=== PATIENT | male | born 1940 | race Caucasian/White ===

== ENCOUNTER 2022-04-12 12:21 | Emergency (ER) | payer MEDICARE ==
[2022-04-12] MEDS ORDERED: Morphine 4 MG/ML Syringe IV ONE ×2 (12:46→13:19)
[2022-04-12] MEDS ORDERED: Ondansetron 4 MG/2 ML SDV IVPUSH ONE (12:46)
[2022-04-12] MEDS: Sodium Chloride 0.9% 10 ML Syringe FLUSH PRN ×3 (12:55→14:26)
[2022-04-12 13:45] LABS: CORONAVIRUS COVID-19 NAA NEGATIVE (NEGATIVE); RESPIRATORY SYNCYTIAL VIR NAA NEGATIVE (NEGATIVE)
[2022-04-12] MEDS ORDERED: HYDROmorphone 1 MG/ML Syringe IVPUSH ONE (14:12)
[2022-04-12] MEDS ORDERED: HYDROmorphone 0.5 MG/0.5 ML Syringe IVPUSH ONE ×2 (15:15→16:02)
== END 2022-04-12 16:18 ==
LOC: LL.ED 12:21
DX: S72.142A Displaced intertrochanteric fracture of left femur, initial encounter for closed fracture (principal); I10 Essential (primary) hypertension; I25.2 Old myocardial infarction; Z79.899 Other long term (current) drug therapy; Z79.82 Long term (current) use of aspirin; Z20.822 Contact with and (suspected) exposure to COVID-19; W01.0XXA Fall on same level from slipping, tripping and stumbling without subsequent striking against object, initial encounter
CPT/HCPCS: 0241U; 36415; 80053; 85025; 93005; 93010; 94761; 96374; 96375; 96376; 99284; 99284-25; J1170; J2270; J2405; J3360; J3490

== ENCOUNTER 2022-04-19 15:20 | Inpatient (IN) | payer MEDICARE ==
[2022-04-19] MEDS: Acetaminophen/HYDROcodone 325-10 MG Tab PO ONE ×3 (14:00→16:30)
[2022-04-19] MEDS ORDERED: Sennosides 8.6 MG Tab PO PRN (16:30)
[2022-04-19] MEDS: Omeprazole 20 MG Cap.CR PO SCH (18:28)
[2022-04-19] MEDS: Calcium Carbonate/Vitamin D3 1500 MG-400 Units Tab PO SCH (18:32)
[2022-04-19] MEDS: Sulfamethoxazole/Trimethoprim 800-160 MG Tab PO SCH (20:22)
[2022-04-19] MEDS: Metoprolol Tartrate 25 MG Tab PO SCH (20:23)
[2022-04-19] MEDS: Rosuvastatin 10 MG Tab PO SCH (20:24)
[2022-04-19] MEDS: Acetaminophen/HYDROcodone 325-5 MG Tab PO PRN (21:53)
[2022-04-20] MEDS: Acetaminophen/HYDROcodone 325-5 MG Tab PO PRN ×5 (02:44→22:10)
[2022-04-20] MEDS: Metoprolol Tartrate 25 MG Tab PO SCH ×2 (07:45→19:47)
[2022-04-20] MEDS: Sulfamethoxazole/Trimethoprim 800-160 MG Tab PO SCH ×2 (07:45→19:45)
[2022-04-20] MEDS: Folic Acid 1 MG Tab PO SCH (07:46)
[2022-04-20] MEDS: Omeprazole 20 MG Cap.CR PO SCH ×2 (07:46→17:17)
[2022-04-20] MEDS: predniSONE 5 MG Tab PO SCH (07:46)
[2022-04-20] MEDS: Sertraline 25 MG Tab PO SCH (07:47)
[2022-04-20] MEDS: Finasteride 5 MG Tab PO SCH (07:47)
[2022-04-20] MEDS: Lisinopril 5 MG Tab PO SCH (07:47)
[2022-04-20] MEDS: Multivitamin Tab PO SCH (07:48)
[2022-04-20] MEDS: Cetirizine 10 MG Tab PO SCH (07:49)
[2022-04-20] MEDS: Calcium Carbonate/Vitamin D3 1500 MG-400 Units Tab PO SCH ×2 (07:49→17:17)
[2022-04-20] MEDS: Cholecalciferol (Vitamin D3) 25 MCG Tab PO SCH (07:49)
[2022-04-20] MEDS: Aspirin 81 MG Tab.EC PO SCH (07:51)
[2022-04-20] MEDS: Rosuvastatin 10 MG Tab PO SCH (19:46)
[2022-04-21] MEDS: Acetaminophen/HYDROcodone 325-5 MG Tab PO PRN ×5 (02:42→22:33)
[2022-04-21] MEDS: Folic Acid 1 MG Tab PO SCH (07:30)
[2022-04-21] MEDS: predniSONE 5 MG Tab PO SCH (07:30)
[2022-04-21] MEDS: Finasteride 5 MG Tab PO SCH (07:30)
[2022-04-21] MEDS: Omeprazole 20 MG Cap.CR PO SCH ×2 (07:31→17:00)
[2022-04-21] MEDS: Lisinopril 5 MG Tab PO SCH (07:31)
[2022-04-21] MEDS: Sertraline 25 MG Tab PO SCH (07:31)
[2022-04-21] MEDS: Sulfamethoxazole/Trimethoprim 800-160 MG Tab PO SCH ×2 (07:31→19:48)
[2022-04-21] MEDS: Aspirin 81 MG Tab.EC PO SCH (07:32)
[2022-04-21] MEDS: Metoprolol Tartrate 25 MG Tab PO SCH ×2 (07:32→19:46)
[2022-04-21] MEDS: Cholecalciferol (Vitamin D3) 25 MCG Tab PO SCH (07:33)
[2022-04-21] MEDS: Calcium Carbonate/Vitamin D3 1500 MG-400 Units Tab PO SCH ×2 (07:33→17:00)
[2022-04-21] MEDS: Cetirizine 10 MG Tab PO SCH (07:33)
[2022-04-21] MEDS: Multivitamin Tab PO SCH (07:33)
[2022-04-21] MEDS: Rosuvastatin 10 MG Tab PO SCH (19:46)
[2022-04-22] MEDS: Acetaminophen/HYDROcodone 325-5 MG Tab PO PRN ×5 (03:36→20:16)
[2022-04-22] MEDS: Folic Acid 1 MG Tab PO SCH (08:16)
[2022-04-22] MEDS: Metoprolol Tartrate 25 MG Tab PO SCH ×2 (08:16→20:15)
[2022-04-22] MEDS: Aspirin 81 MG Tab.EC PO SCH (08:16)
[2022-04-22] MEDS: Omeprazole 20 MG Cap.CR PO SCH ×2 (08:18→17:28)
[2022-04-22] MEDS: Lisinopril 5 MG Tab PO SCH (08:18)
[2022-04-22] MEDS: predniSONE 5 MG Tab PO SCH (08:18)
[2022-04-22] MEDS: Finasteride 5 MG Tab PO SCH (08:19)
[2022-04-22] MEDS: Cholecalciferol (Vitamin D3) 25 MCG Tab PO SCH (08:19)
[2022-04-22] MEDS: Multivitamin Tab PO SCH (08:19)
[2022-04-22] MEDS: Sulfamethoxazole/Trimethoprim 800-160 MG Tab PO SCH ×2 (08:19→17:28)
[2022-04-22] MEDS: Sertraline 25 MG Tab PO SCH (08:20)
[2022-04-22] MEDS: Cetirizine 10 MG Tab PO SCH (08:20)
[2022-04-22] MEDS: Calcium Carbonate/Vitamin D3 1500 MG-400 Units Tab PO SCH ×2 (08:49→17:27)
[2022-04-22] MEDS ORDERED: Polyethylene Glycol 3350 Powder 510 GM Bot PO PRN (12:59)
[2022-04-22 13:21] LABS: ANION GAP 7.5 meq/L (7-15)
[2022-04-22] MEDS: Rosuvastatin 10 MG Tab PO SCH (20:15)
[2022-04-23] MEDS: Acetaminophen/HYDROcodone 325-5 MG Tab PO PRN ×3 (01:04→10:11)
[2022-04-23] MEDS: Calcium Carbonate/Vitamin D3 1500 MG-400 Units Tab PO SCH ×2 (08:13→17:28)
[2022-04-23] MEDS: Folic Acid 1 MG Tab PO SCH (08:14)
[2022-04-23] MEDS: Aspirin 81 MG Tab.EC PO SCH (08:14)
[2022-04-23] MEDS: Metoprolol Tartrate 25 MG Tab PO SCH ×2 (08:15→19:50)
[2022-04-23] MEDS: Omeprazole 20 MG Cap.CR PO SCH ×2 (08:16→17:29)
[2022-04-23] MEDS: Lisinopril 5 MG Tab PO SCH (08:17)
[2022-04-23] MEDS: predniSONE 5 MG Tab PO SCH (08:17)
[2022-04-23] MEDS: Sennosides 8.6 MG Tab PO SCH (08:18)
[2022-04-23] MEDS: Finasteride 5 MG Tab PO SCH (08:18)
[2022-04-23] MEDS: Multivitamin Tab PO SCH (08:19)
[2022-04-23] MEDS: Cholecalciferol (Vitamin D3) 25 MCG Tab PO SCH (08:19)
[2022-04-23] MEDS: Sulfamethoxazole/Trimethoprim 800-160 MG Tab PO SCH ×2 (08:19→17:30)
[2022-04-23] MEDS: Sertraline 25 MG Tab PO SCH (08:20)
[2022-04-23] MEDS: Cetirizine 10 MG Tab PO SCH (08:23)
[2022-04-23 08:58] LABS: ANION GAP 7.4 meq/L (7-15)
[2022-04-23] MEDS: Acetaminophen/HYDROcodone 325-10 MG Tab PO PRN ×2 (14:34→21:38)
[2022-04-23] MEDS: Rosuvastatin 10 MG Tab PO SCH (19:49)
[2022-04-24] MEDS: Folic Acid 1 MG Tab PO SCH (09:05)
[2022-04-24] MEDS: Calcium Carbonate/Vitamin D3 1500 MG-400 Units Tab PO SCH ×2 (09:05→17:24)
[2022-04-24] MEDS: Aspirin 81 MG Tab.EC PO SCH (09:05)
[2022-04-24] MEDS: Metoprolol Tartrate 25 MG Tab PO SCH ×2 (09:05→19:43)
[2022-04-24] MEDS: Cetirizine 10 MG Tab PO SCH (09:06)
[2022-04-24] MEDS: Sennosides 8.6 MG Tab PO SCH (09:06)
[2022-04-24] MEDS: predniSONE 5 MG Tab PO SCH (09:06)
[2022-04-24] MEDS: Cholecalciferol (Vitamin D3) 25 MCG Tab PO SCH (09:06)
[2022-04-24] MEDS: Sulfamethoxazole/Trimethoprim 800-160 MG Tab PO SCH ×2 (09:06→17:25)
[2022-04-24] MEDS: Omeprazole 20 MG Cap.CR PO SCH ×2 (09:06→17:25)
[2022-04-24] MEDS: Finasteride 5 MG Tab PO SCH (09:06)
[2022-04-24] MEDS: Sertraline 25 MG Tab PO SCH (09:06)
[2022-04-24] MEDS: Multivitamin Tab PO SCH (09:06)
[2022-04-24] MEDS: Lisinopril 5 MG Tab PO SCH (09:06)
[2022-04-24] MEDS: Acetaminophen/HYDROcodone 325-10 MG Tab PO PRN ×2 (14:25→20:30)
[2022-04-24] MEDS ORDERED: Enoxaparin 30 MG/0.3 ML Syringe SUBCUT SCH (17:00)
[2022-04-24] MEDS: Rosuvastatin 10 MG Tab PO SCH (19:42)
[2022-04-24] MEDS: Enoxaparin 40 MG/0.4 ML Syringe SUBCUT SCH (19:45)
[2022-04-25] MEDS: Acetaminophen/HYDROcodone 325-10 MG Tab PO PRN ×3 (05:14→20:26)
[2022-04-25] MEDS: Metoprolol Tartrate 25 MG Tab PO SCH ×2 (08:21→20:15)
[2022-04-25] MEDS: Sulfamethoxazole/Trimethoprim 800-160 MG Tab PO SCH ×2 (08:22→17:38)
[2022-04-25] MEDS: predniSONE 5 MG Tab PO SCH (08:22)
[2022-04-25] MEDS: Finasteride 5 MG Tab PO SCH (08:22)
[2022-04-25] MEDS: Lisinopril 5 MG Tab PO SCH (08:23)
[2022-04-25] MEDS: Omeprazole 20 MG Cap.CR PO SCH ×2 (08:23→17:37)
[2022-04-25] MEDS: Sertraline 25 MG Tab PO SCH (08:24)
[2022-04-25] MEDS: Cholecalciferol (Vitamin D3) 25 MCG Tab PO SCH (08:25)
[2022-04-25] MEDS: Aspirin 81 MG Tab.EC PO SCH (08:26)
[2022-04-25] MEDS: Sennosides 8.6 MG Tab PO SCH (08:26)
[2022-04-25] MEDS: Multivitamin Tab PO SCH (08:27)
[2022-04-25] MEDS: Cetirizine 10 MG Tab PO SCH (08:27)
[2022-04-25] MEDS: Calcium Carbonate/Vitamin D3 1500 MG-400 Units Tab PO SCH ×2 (08:29→17:37)
[2022-04-25] MEDS: Folic Acid 1 MG Tab PO SCH (08:30)
[2022-04-25] MEDS: Acetaminophen 325 MG Tab PO PRN (17:39)
[2022-04-25] MEDS: Enoxaparin 40 MG/0.4 ML Syringe SUBCUT SCH (20:17)
[2022-04-25] MEDS: Rosuvastatin 10 MG Tab PO SCH (20:24)
[2022-04-26 07:54] LABS: ANION GAP 5.5 meq/L (7-15)
[2022-04-26] MEDS: Lisinopril 5 MG Tab PO SCH (08:14)
[2022-04-26] MEDS: Omeprazole 20 MG Cap.CR PO SCH ×2 (08:14→17:06)
[2022-04-26] MEDS: Sertraline 25 MG Tab PO SCH (08:14)
[2022-04-26] MEDS: Calcium Carbonate/Vitamin D3 1500 MG-400 Units Tab PO SCH ×2 (08:14→17:06)
[2022-04-26] MEDS: predniSONE 5 MG Tab PO SCH (08:15)
[2022-04-26] MEDS: Sulfamethoxazole/Trimethoprim 800-160 MG Tab PO SCH (08:15)
[2022-04-26] MEDS: Finasteride 5 MG Tab PO SCH (08:15)
[2022-04-26] MEDS: Folic Acid 1 MG Tab PO SCH (08:15)
[2022-04-26] MEDS: Metoprolol Tartrate 25 MG Tab PO SCH ×2 (08:15→20:12)
[2022-04-26] MEDS: Sennosides 8.6 MG Tab PO SCH (08:17)
[2022-04-26] MEDS: Aspirin 81 MG Tab.EC PO SCH (08:17)
[2022-04-26] MEDS: Multivitamin Tab PO SCH (08:17)
[2022-04-26] MEDS: Cetirizine 10 MG Tab PO SCH (08:19)
[2022-04-26] MEDS: Cholecalciferol (Vitamin D3) 25 MCG Tab PO SCH (08:19)
[2022-04-26] MEDS: Acetaminophen/HYDROcodone 325-10 MG Tab PO PRN ×2 (08:23→22:09)
[2022-04-26] MEDS: Acetaminophen 325 MG Tab PO PRN (11:18)
[2022-04-26] MEDS ORDERED: Acetaminophen/HYDROcodone 325-10 MG Tab PO ONE (13:41)
[2022-04-26] MEDS: Rosuvastatin 10 MG Tab PO SCH (20:11)
[2022-04-26] MEDS: Enoxaparin 40 MG/0.4 ML Syringe SUBCUT SCH (20:14)
[2022-04-27] MEDS: Omeprazole 20 MG Cap.CR PO SCH ×2 (08:08→17:34)
[2022-04-27] MEDS: Sertraline 25 MG Tab PO SCH (08:08)
[2022-04-27] MEDS: Lisinopril 5 MG Tab PO SCH (08:09)
[2022-04-27] MEDS: predniSONE 5 MG Tab PO SCH (08:09)
[2022-04-27] MEDS: Folic Acid 1 MG Tab PO SCH (08:10)
[2022-04-27] MEDS: Finasteride 5 MG Tab PO SCH (08:11)
[2022-04-27] MEDS: Aspirin 81 MG Tab.EC PO SCH (08:11)
[2022-04-27] MEDS: Sennosides 8.6 MG Tab PO SCH (08:11)
[2022-04-27] MEDS: Calcium Carbonate/Vitamin D3 1500 MG-400 Units Tab PO SCH ×2 (08:12→17:34)
[2022-04-27] MEDS: Metoprolol Tartrate 25 MG Tab PO SCH ×2 (08:12→20:28)
[2022-04-27] MEDS: Multivitamin Tab PO SCH (08:12)
[2022-04-27] MEDS: Cholecalciferol (Vitamin D3) 25 MCG Tab PO SCH (08:18)
[2022-04-27] MEDS: Cetirizine 10 MG Tab PO SCH (08:19)
[2022-04-27] MEDS: Acetaminophen/HYDROcodone 325-10 MG Tab PO PRN ×3 (08:20→22:41)
[2022-04-27] MEDS: Acetaminophen 325 MG Tab PO PRN (12:53)
[2022-04-27] MEDS: Rosuvastatin 10 MG Tab PO SCH (20:27)
[2022-04-27] MEDS: Enoxaparin 40 MG/0.4 ML Syringe SUBCUT SCH (20:30)
[2022-04-28] MEDS: Metoprolol Tartrate 25 MG Tab PO SCH ×2 (08:11→19:57)
[2022-04-28] MEDS: Lisinopril 5 MG Tab PO SCH (08:16)
[2022-04-28] MEDS: Omeprazole 20 MG Cap.CR PO SCH ×2 (08:17→17:16)
[2022-04-28] MEDS: Sertraline 25 MG Tab PO SCH (08:17)
[2022-04-28] MEDS: Folic Acid 1 MG Tab PO SCH (08:17)
[2022-04-28] MEDS: Finasteride 5 MG Tab PO SCH (08:18)
[2022-04-28] MEDS: predniSONE 5 MG Tab PO SCH (08:18)
[2022-04-28] MEDS: Aspirin 81 MG Tab.EC PO SCH (08:19)
[2022-04-28] MEDS: Sennosides 8.6 MG Tab PO SCH (08:20)
[2022-04-28] MEDS: Calcium Carbonate/Vitamin D3 1500 MG-400 Units Tab PO SCH ×2 (08:20→17:16)
[2022-04-28] MEDS: Cholecalciferol (Vitamin D3) 25 MCG Tab PO SCH (08:21)
[2022-04-28] MEDS: Multivitamin Tab PO SCH (08:21)
[2022-04-28] MEDS: Cetirizine 10 MG Tab PO SCH (08:22)
[2022-04-28] MEDS: Acetaminophen/HYDROcodone 325-10 MG Tab PO PRN ×2 (12:10→17:17)
[2022-04-28] MEDS: Acetaminophen 325 MG Tab PO PRN ×2 (16:00→20:04)
[2022-04-28] MEDS: Rosuvastatin 10 MG Tab PO SCH (19:57)
[2022-04-28] MEDS: Enoxaparin 40 MG/0.4 ML Syringe SUBCUT SCH (19:59)
[2022-04-29] MEDS: Acetaminophen/HYDROcodone 325-10 MG Tab PO PRN ×4 (02:32→20:31)
[2022-04-29] MEDS: Calcium Carbonate/Vitamin D3 1500 MG-400 Units Tab PO SCH ×2 (08:30→17:09)
[2022-04-29] MEDS: Aspirin 81 MG Tab.EC PO SCH (08:31)
[2022-04-29] MEDS: Folic Acid 1 MG Tab PO SCH (08:31)
[2022-04-29] MEDS: Sertraline 25 MG Tab PO SCH (08:31)
[2022-04-29] MEDS: Finasteride 5 MG Tab PO SCH (08:31)
[2022-04-29] MEDS: Metoprolol Tartrate 25 MG Tab PO SCH ×2 (08:31→20:13)
[2022-04-29] MEDS: Lisinopril 5 MG Tab PO SCH (08:31)
[2022-04-29] MEDS: Cetirizine 10 MG Tab PO SCH (08:32)
[2022-04-29] MEDS: predniSONE 5 MG Tab PO SCH (08:32)
[2022-04-29] MEDS: Sennosides 8.6 MG Tab PO SCH (08:32)
[2022-04-29] MEDS: Omeprazole 20 MG Cap.CR PO SCH ×2 (08:32→17:09)
[2022-04-29] MEDS: Cholecalciferol (Vitamin D3) 25 MCG Tab PO SCH (08:32)
[2022-04-29] MEDS: Multivitamin Tab PO SCH (08:32)
[2022-04-29] MEDS: Acetaminophen 325 MG Tab PO PRN ×2 (11:31→22:28)
[2022-04-29] MEDS: Rosuvastatin 10 MG Tab PO SCH (20:13)
[2022-04-29] MEDS: Enoxaparin 40 MG/0.4 ML Syringe SUBCUT SCH (20:14)
[2022-04-30] MEDS: Acetaminophen/HYDROcodone 325-10 MG Tab PO PRN ×3 (08:04→20:32)
[2022-04-30] MEDS: Calcium Carbonate/Vitamin D3 1500 MG-400 Units Tab PO SCH ×2 (08:06→17:27)
[2022-04-30] MEDS: Folic Acid 1 MG Tab PO SCH (08:08)
[2022-04-30] MEDS: Aspirin 81 MG Tab.EC PO SCH (08:09)
[2022-04-30] MEDS: predniSONE 5 MG Tab PO SCH (08:10)
[2022-04-30] MEDS: Omeprazole 20 MG Cap.CR PO SCH ×2 (08:10→17:27)
[2022-04-30] MEDS: Lisinopril 5 MG Tab PO SCH (08:10)
[2022-04-30] MEDS: Finasteride 5 MG Tab PO SCH (08:11)
[2022-04-30] MEDS: Multivitamin Tab PO SCH (08:12)
[2022-04-30] MEDS: Sennosides 8.6 MG Tab PO SCH (08:12)
[2022-04-30] MEDS: Cholecalciferol (Vitamin D3) 25 MCG Tab PO SCH (08:13)
[2022-04-30] MEDS: Cetirizine 10 MG Tab PO SCH (08:14)
[2022-04-30] MEDS: Sertraline 25 MG Tab PO SCH (08:14)
[2022-04-30] MEDS: Metoprolol Tartrate 25 MG Tab PO SCH ×2 (08:27→20:28)
[2022-04-30] MEDS: Rosuvastatin 10 MG Tab PO SCH (20:27)
[2022-04-30] MEDS: Enoxaparin 40 MG/0.4 ML Syringe SUBCUT SCH (20:30)
[2022-05-01] MEDS: Acetaminophen/HYDROcodone 325-10 MG Tab PO PRN ×3 (07:55→22:01)
[2022-05-01] MEDS: Calcium Carbonate/Vitamin D3 1500 MG-400 Units Tab PO SCH ×2 (07:55→17:19)
[2022-05-01] MEDS: Aspirin 81 MG Tab.EC PO SCH (07:57)
[2022-05-01] MEDS: Metoprolol Tartrate 25 MG Tab PO SCH ×2 (07:57→20:18)
[2022-05-01] MEDS: Folic Acid 1 MG Tab PO SCH (07:57)
[2022-05-01] MEDS: Omeprazole 20 MG Cap.CR PO SCH ×2 (07:58→17:20)
[2022-05-01] MEDS: predniSONE 5 MG Tab PO SCH (07:58)
[2022-05-01] MEDS: Lisinopril 5 MG Tab PO SCH (07:59)
[2022-05-01] MEDS: Finasteride 5 MG Tab PO SCH (07:59)
[2022-05-01] MEDS: Cholecalciferol (Vitamin D3) 25 MCG Tab PO SCH (08:00)
[2022-05-01] MEDS: Multivitamin Tab PO SCH (08:00)
[2022-05-01] MEDS: Sennosides 8.6 MG Tab PO SCH (08:00)
[2022-05-01] MEDS: Sertraline 25 MG Tab PO SCH (08:01)
[2022-05-01] MEDS: Cetirizine 10 MG Tab PO SCH (08:01)
[2022-05-01] MEDS: Rosuvastatin 10 MG Tab PO SCH (20:16)
[2022-05-01] MEDS: Enoxaparin 40 MG/0.4 ML Syringe SUBCUT SCH (20:19)
[2022-05-02] MEDS: Acetaminophen/HYDROcodone 325-10 MG Tab PO PRN (07:53)
[2022-05-02] MEDS: Metoprolol Tartrate 25 MG Tab PO SCH ×2 (07:54→19:56)
[2022-05-02] MEDS: Omeprazole 20 MG Cap.CR PO SCH ×2 (07:55→17:39)
[2022-05-02] MEDS: Lisinopril 5 MG Tab PO SCH (07:56)
[2022-05-02] MEDS: predniSONE 5 MG Tab PO SCH (07:56)
[2022-05-02] MEDS: Finasteride 5 MG Tab PO SCH (07:57)
[2022-05-02] MEDS: Folic Acid 1 MG Tab PO SCH (07:57)
[2022-05-02] MEDS: Sertraline 25 MG Tab PO SCH (07:58)
[2022-05-02] MEDS: Aspirin 81 MG Tab.EC PO SCH (07:59)
[2022-05-02] MEDS: Calcium Carbonate/Vitamin D3 1500 MG-400 Units Tab PO SCH ×2 (07:59→17:40)
[2022-05-02] MEDS: Sennosides 8.6 MG Tab PO SCH (08:00)
[2022-05-02] MEDS: Multivitamin Tab PO SCH (08:00)
[2022-05-02] MEDS: Cholecalciferol (Vitamin D3) 25 MCG Tab PO SCH (08:01)
[2022-05-02] MEDS: Cetirizine 10 MG Tab PO SCH (08:01)
[2022-05-02] MEDS: Enoxaparin 40 MG/0.4 ML Syringe SUBCUT SCH (19:55)
[2022-05-02] MEDS: Rosuvastatin 10 MG Tab PO SCH (19:56)
[2022-05-03] MEDS: Folic Acid 1 MG Tab PO SCH (07:53)
[2022-05-03] MEDS: Calcium Carbonate/Vitamin D3 1500 MG-400 Units Tab PO SCH ×2 (07:53→17:25)
[2022-05-03] MEDS: Aspirin 81 MG Tab.EC PO SCH (07:53)
[2022-05-03] MEDS: Metoprolol Tartrate 25 MG Tab PO SCH ×2 (07:54→20:40)
[2022-05-03] MEDS: Omeprazole 20 MG Cap.CR PO SCH ×2 (07:55→17:26)
[2022-05-03] MEDS: predniSONE 5 MG Tab PO SCH (07:55)
[2022-05-03] MEDS: Lisinopril 5 MG Tab PO SCH (07:55)
[2022-05-03] MEDS: Finasteride 5 MG Tab PO SCH (07:57)
[2022-05-03] MEDS: Sennosides 8.6 MG Tab PO SCH (07:57)
[2022-05-03] MEDS: Sertraline 25 MG Tab PO SCH (07:58)
[2022-05-03] MEDS: Cholecalciferol (Vitamin D3) 25 MCG Tab PO SCH (07:58)
[2022-05-03] MEDS: Multivitamin Tab PO SCH (07:58)
[2022-05-03] MEDS: Cetirizine 10 MG Tab PO SCH (07:59)
[2022-05-03] MEDS: Acetaminophen/HYDROcodone 325-10 MG Tab PO PRN ×3 (08:04→21:52)
[2022-05-03] MEDS ORDERED: Acetaminophen 325 MG Tab PO PRN (11:28)
[2022-05-03] MEDS: Rosuvastatin 10 MG Tab PO SCH (20:39)
[2022-05-03] MEDS: Enoxaparin 40 MG/0.4 ML Syringe SUBCUT SCH (20:41)
[2022-05-04] MEDS: Calcium Carbonate/Vitamin D3 1500 MG-400 Units Tab PO SCH ×2 (07:54→17:26)
[2022-05-04] MEDS: Folic Acid 1 MG Tab PO SCH (07:56)
[2022-05-04] MEDS: Aspirin 81 MG Tab.EC PO SCH (07:56)
[2022-05-04] MEDS: Metoprolol Tartrate 25 MG Tab PO SCH ×2 (07:56→19:29)
[2022-05-04] MEDS: predniSONE 5 MG Tab PO SCH (07:57)
[2022-05-04] MEDS: Omeprazole 20 MG Cap.CR PO SCH ×2 (07:57→17:27)
[2022-05-04] MEDS: Lisinopril 5 MG Tab PO SCH (07:58)
[2022-05-04] MEDS: Multivitamin Tab PO SCH (07:59)
[2022-05-04] MEDS: Finasteride 5 MG Tab PO SCH (07:59)
[2022-05-04] MEDS: Cholecalciferol (Vitamin D3) 25 MCG Tab PO SCH (07:59)
[2022-05-04] MEDS: Sennosides 8.6 MG Tab PO SCH (07:59)
[2022-05-04] MEDS: Cetirizine 10 MG Tab PO SCH (08:00)
[2022-05-04] MEDS: Sertraline 25 MG Tab PO SCH (08:00)
[2022-05-04] MEDS: Acetaminophen/HYDROcodone 325-10 MG Tab PO PRN ×2 (08:01→13:42)
[2022-05-04] MEDS: Rosuvastatin 10 MG Tab PO SCH (19:31)
[2022-05-04] MEDS: Enoxaparin 40 MG/0.4 ML Syringe SUBCUT SCH (19:31)
[2022-05-05] MEDS: Acetaminophen/HYDROcodone 325-10 MG Tab PO PRN ×3 (03:15→19:54)
[2022-05-05] MEDS: Aspirin 81 MG Tab.EC PO SCH (07:55)
[2022-05-05] MEDS: Calcium Carbonate/Vitamin D3 1500 MG-400 Units Tab PO SCH ×2 (07:55→17:31)
[2022-05-05] MEDS: Folic Acid 1 MG Tab PO SCH (07:55)
[2022-05-05] MEDS: Metoprolol Tartrate 25 MG Tab PO SCH ×2 (07:56→19:49)
[2022-05-05] MEDS: Lisinopril 5 MG Tab PO SCH (07:57)
[2022-05-05] MEDS: predniSONE 5 MG Tab PO SCH (07:57)
[2022-05-05] MEDS: Omeprazole 20 MG Cap.CR PO SCH ×2 (07:57→17:32)
[2022-05-05] MEDS: Cholecalciferol (Vitamin D3) 25 MCG Tab PO SCH (07:59)
[2022-05-05] MEDS: Multivitamin Tab PO SCH (07:59)
[2022-05-05] MEDS: Finasteride 5 MG Tab PO SCH (07:59)
[2022-05-05] MEDS: Sennosides 8.6 MG Tab PO SCH (07:59)
[2022-05-05] MEDS: Sertraline 25 MG Tab PO SCH (08:00)
[2022-05-05] MEDS: Cetirizine 10 MG Tab PO SCH (08:00)
[2022-05-05] MEDS: Rosuvastatin 10 MG Tab PO SCH (19:51)
[2022-05-05] MEDS: Enoxaparin 40 MG/0.4 ML Syringe SUBCUT SCH (19:52)
[2022-05-06] MEDS: Calcium Carbonate/Vitamin D3 1500 MG-400 Units Tab PO SCH ×2 (08:06→17:20)
[2022-05-06] MEDS: Acetaminophen/HYDROcodone 325-10 MG Tab PO PRN ×3 (08:06→20:51)
[2022-05-06] MEDS: Aspirin 81 MG Tab.EC PO SCH (08:07)
[2022-05-06] MEDS: Folic Acid 1 MG Tab PO SCH (08:07)
[2022-05-06] MEDS: Metoprolol Tartrate 25 MG Tab PO SCH ×2 (08:08→20:00)
[2022-05-06] MEDS: Omeprazole 20 MG Cap.CR PO SCH ×2 (08:09→17:20)
[2022-05-06] MEDS: predniSONE 5 MG Tab PO SCH (08:09)
[2022-05-06] MEDS: Lisinopril 5 MG Tab PO SCH (08:10)
[2022-05-06] MEDS: Finasteride 5 MG Tab PO SCH (08:11)
[2022-05-06] MEDS: Multivitamin Tab PO SCH (08:11)
[2022-05-06] MEDS: Sennosides 8.6 MG Tab PO SCH (08:11)
[2022-05-06] MEDS: Sertraline 25 MG Tab PO SCH (08:12)
[2022-05-06] MEDS: Cholecalciferol (Vitamin D3) 25 MCG Tab PO SCH (08:12)
[2022-05-06] MEDS: Cetirizine 10 MG Tab PO SCH (08:13)
[2022-05-06] MEDS: Rosuvastatin 10 MG Tab PO SCH (19:59)
[2022-05-06] MEDS: Enoxaparin 40 MG/0.4 ML Syringe SUBCUT SCH (20:01)
[2022-05-07] MEDS: Aspirin 81 MG Tab.EC PO SCH (07:07)
[2022-05-07] MEDS: Calcium Carbonate/Vitamin D3 1500 MG-400 Units Tab PO SCH (07:07)
[2022-05-07] MEDS: Metoprolol Tartrate 25 MG Tab PO SCH (07:08)
[2022-05-07] MEDS: Lisinopril 5 MG Tab PO SCH (07:08)
[2022-05-07] MEDS: Finasteride 5 MG Tab PO SCH (07:08)
[2022-05-07] MEDS: Omeprazole 20 MG Cap.CR PO SCH (07:08)
[2022-05-07] MEDS: Sertraline 25 MG Tab PO SCH (07:08)
[2022-05-07] MEDS: Folic Acid 1 MG Tab PO SCH (07:09)
[2022-05-07] MEDS: predniSONE 5 MG Tab PO SCH (07:09)
[2022-05-07] MEDS: Cholecalciferol (Vitamin D3) 25 MCG Tab PO SCH (07:11)
[2022-05-07] MEDS: Sennosides 8.6 MG Tab PO SCH (07:11)
[2022-05-07] MEDS: Cetirizine 10 MG Tab PO SCH (07:11)
[2022-05-07] MEDS: Multivitamin Tab PO SCH (07:11)
[2022-05-07] MEDS: Acetaminophen/HYDROcodone 325-10 MG Tab PO PRN (07:12)
== END 2022-05-07 11:04 | disposition home or self-care (01) | DRG 561 ==
LOC: LL.MS 15:54 → LL.SWG 16:10
PROVIDERS: ADMIT Physician Assistant; ATTEND Nurse Practitioner Family
DX: S72.143D Displaced intertrochanteric fracture of unspecified femur, subsequent encounter for closed fracture with routine healing (principal); M06.9 Rheumatoid arthritis, unspecified; I10 Essential (primary) hypertension; D69.6 Thrombocytopenia, unspecified; E78.00 Pure hypercholesterolemia, unspecified; D64.9 Anemia, unspecified; K59.00 Constipation, unspecified; Z95.5 Presence of coronary angioplasty implant and graft; I25.2 Old myocardial infarction; Z79.52 Long term (current) use of systemic steroids; Z79.899 Other long term (current) drug therapy; Z79.82 Long term (current) use of aspirin; Z98.1 Arthrodesis status; Z86.19 Personal history of other infectious and parasitic diseases
CPT/HCPCS: 36415; 71046; 80048; 80053; 81001; 85014; 85018; 85025; 97110-GP; 97162-GP; 97165-GO; 97530-GO; 97530-GP; 97535-GO; 99306; A9270-GY; J1650; J7512

== ENCOUNTER 2022-07-27 13:46 | Emergency (ER) | payer MEDICARE ==
[2022-07-27] MEDS ORDERED: Sodium Chloride 0.9% 10 ML Syringe FLUSH PRN (14:22)
[2022-07-27 15:19] LABS: ANION GAP 9.3 meq/L (7-15); CHLORIDE,CL 103 mmol/L (98-107); ESTIMATED GFR 51 mL/min (>=60); SODIUM,NA 140 mmol/L (136-145)
== END 2022-07-27 16:57 | disposition home or self-care (01) ==
LOC: LL.ED 13:46
DX: G44.221 Chronic tension-type headache, intractable (principal); N17.9 Acute kidney failure, unspecified; E86.0 Dehydration; R42 Dizziness and giddiness; E78.00 Pure hypercholesterolemia, unspecified; I10 Essential (primary) hypertension; I25.2 Old myocardial infarction; Z88.8 Allergy status to other drugs, medicaments and biological substances; Z79.82 Long term (current) use of aspirin; Z79.899 Other long term (current) drug therapy
CPT/HCPCS: 36415; 80053; 81003; 83735; 85025; 86140; 93005; 99284

== ENCOUNTER 2023-06-20 14:09 | Emergency (ER) | payer MEDICARE ==
[2023-06-20] MEDS ORDERED: Aspirin 81 MG Tab.Chew PO ONE (14:17)
[2023-06-20] MEDS ORDERED: Sodium Chloride 0.9% 10 ML Syringe FLUSH PRN (14:17)
[2023-06-20 14:29] LABS: BASOPHILS ABSOLUTE AUTO 0.01 K/uL (0.00-0.20); BASOPHILS PERCENT AUTO 0.1 % (0.0-2.0); EOSINOPHILS ABSOLUTE AUTO 0.04 K/uL (0.00-0.50); EOSINOPHILS PERCENT AUTO 0.4 % (0.0-5.0); HEMATOCRIT 39.6 % (39.0-49.0); HEMOGLOBIN 13.1 g/dL (13.1-16.8); LYMPHOCYTES ABSOLUTE AUTO 0.95 K/uL (0.50-3.50); LYMPHOCYTES PERCENT AUTO 9.4 % (10.0-50.0); MEAN CORPUSCULAR HEMOGLOBIN 34.9 pg (28.2-33.3); MEAN CORPUSCULAR HGB CONC 33.1 g/dL (31.7-36.0); MEAN CORPUSCULAR VOLUME 105.6 fL (84.0-98.0); MONOCYTES ABSOLUTE AUTO 0.54 K/uL (0.00-1.00); MONOCYTES PERCENT AUTO 5.4 % (2.0-14.0); NEUTROPHILS ABSOLUTE AUTO 8.52 K/uL (1.40-7.00); NEUTROPHILS PERCENT AUTO 84.7 % (45.0-80.0); PLATELET COUNT,PLT 119 K/uL (150-350); RED BLOOD CELL COUNT 3.75 M/uL (4.33-5.41); RED CELL DISTRIBUTION WIDTH 13.6 % (11.2-14.1); WHITE BLOOD CELL COUNT,WBC 10.1 K/uL (4.0-10.2)
[2023-06-20 14:48] LABS: PROTHROMBIN TIME 10.1 SEC (9.0-11.1)
[2023-06-20 15:01] LABS: ALBUMIN 3.6 g/dL (3.4-5.0); ANION GAP 8.8 meq/L (7-15); BILIRUBIN TOTAL 0.6 mg/dL (0.2-1.0); CALCIUM 8.9 mg/dL (8.5-10.1); CARBON DIOXIDE,CO2 29.2 mmol/L (21.0-32.0); CREATININE 0.94 mg/dL (0.51-1.17); EST CRCL DRUG DOSING (CG) 67.65 mL/min; MAGNESIUM 1.6 mg/dL (1.8-2.4); POTASSIUM,K 4.3 mmol/L (3.5-5.1); PROTEIN TOTAL,TP 6.8 g/dL (6.4-8.2)
== END 2023-06-20 15:33 | disposition home or self-care (01) ==
LOC: LL.ED 14:09
DX: R07.89 Other chest pain (principal); E78.00 Pure hypercholesterolemia, unspecified; I10 Essential (primary) hypertension; I25.2 Old myocardial infarction; Z88.8 Allergy status to other drugs, medicaments and biological substances; Z79.82 Long term (current) use of aspirin; Z79.899 Other long term (current) drug therapy
CPT/HCPCS: 36415; 71045; 80053; 82550; 83605; 83735; 83880; 84484; 85025; 85610; 93005; 99285; A9270-GY

== ENCOUNTER 2023-12-10 13:26 | Emergency (ER) | payer MEDICARE ==
[2023-12-10 13:39] LABS: BASOPHILS ABSOLUTE AUTO 0.02 K/uL (0.00-0.20); BASOPHILS PERCENT AUTO 0.2 % (0.0-2.0); EOSINOPHILS ABSOLUTE AUTO 0.07 K/uL (0.00-0.50); EOSINOPHILS PERCENT AUTO 0.6 % (0.0-5.0); HEMATOCRIT 39.1 % (39.0-49.0); HEMOGLOBIN 12.7 g/dL (13.1-16.8); LYMPHOCYTES ABSOLUTE AUTO 0.66 K/uL (0.50-3.50); LYMPHOCYTES PERCENT AUTO 5.6 % (10.0-50.0); MEAN CORPUSCULAR HEMOGLOBIN 33.9 pg (28.2-33.3); MEAN CORPUSCULAR HGB CONC 32.5 g/dL (31.7-36.0); MEAN CORPUSCULAR VOLUME 104.3 fL (84.0-98.0); MONOCYTES PERCENT AUTO 5.1 % (2.0-14.0); NEUTROPHILS ABSOLUTE AUTO 10.38 K/uL (1.40-7.00); NEUTROPHILS PERCENT AUTO 88.5 % (45.0-80.0); PLATELET COUNT,PLT 111 K/uL (150-350); RED BLOOD CELL COUNT 3.75 M/uL (4.33-5.41); RED CELL DISTRIBUTION WIDTH 14.3 % (11.2-14.1); WHITE BLOOD CELL COUNT,WBC 11.7 K/uL (4.0-10.2)
[2023-12-10 14:01] LABS: ALANINE AMINOTRANSFERASE,ALT 31 U/L (12-78); ALBUMIN 3.4 g/dL (3.4-5.0); ALKALINE PHOSPHATASE 87 IU/L (46-116); ANION GAP 7.8 meq/L (7-15); ASPARTATE AMNIOTRANSFERASE,AST 24 U/L (15-37); BILIRUBIN TOTAL 0.4 mg/dL (0.2-1.0); BLOOD UREA NITROGEN,BUN 16 mg/dL (7-18); C-REACTIVE PROTEIN 0.07 mg/dL (0.05-0.30); CALCIUM 8.7 mg/dL (8.5-10.1); CARBON DIOXIDE,CO2 30.2 mmol/L (21.0-32.0); CHLORIDE,CL 104 mmol/L (98-107); CREATININE 1.02 mg/dL (0.51-1.17); ESTIMATED GFR 74 mL/min (>=60); GLUCOSE RANDOM 140 mg/dL (70-99); POTASSIUM,K 3.7 mmol/L (3.5-5.1); PROTEIN TOTAL,TP 6.5 g/dL (6.4-8.2); SODIUM,NA 142 mmol/L (136-145)
[2023-12-10 14:55] LABS: PROTHROMBIN TIME 9.9 SEC (9.0-11.1); PTT,PARTIAL THROMBOPLSTIN TIME 22.2 SEC (23.6-29.8)
[2023-12-10] MEDS: Heparin Sodium 5,000 Units/ML Vial IVPUSH ONE (15:44)
[2023-12-10] MEDS: Heparin Sodium/0.45% NaCl 500 ML IV SCH (15:49)
== END 2023-12-10 17:04 ==
LOC: LL.ED 13:26
DX: I21.4 Non-ST elevation (NSTEMI) myocardial infarction (principal); I10 Essential (primary) hypertension; I25.2 Old myocardial infarction; I48.91 Unspecified atrial fibrillation; Z95.5 Presence of coronary angioplasty implant and graft; Z79.899 Other long term (current) drug therapy; Z79.82 Long term (current) use of aspirin; Z88.8 Allergy status to other drugs, medicaments and biological substances
CPT/HCPCS: 36415; 71045; 80053; 84484; 85025; 85610; 85730; 86140; 93005; 93010; 96365; 99284; 99285-25; J1644

== ENCOUNTER 2024-12-18 23:20 | Emergency (ER) | payer MEDICARE ==
[2024-12-18] MEDS ORDERED: Sodium Chloride 0.9% 10 ML Syringe FLUSH PRN (23:33)
[2024-12-18] MEDS: Aspirin 81 MG Tab.Chew PO ONE (23:35)
[2024-12-18] MEDS: Nitroglycerin 0.4 MG Tab.SL SL PRN (23:35)
[2024-12-18 23:57] LABS: BASOPHILS ABSOLUTE AUTO 0.02 K/uL (0.00-0.20); BASOPHILS PERCENT AUTO 0.2 % (0.0-2.0); EOSINOPHILS ABSOLUTE AUTO 0.14 K/uL (0.00-0.50); EOSINOPHILS PERCENT AUTO 1.5 % (0.0-5.0); HEMATOCRIT 40.1 % (39.0-49.0); HEMOGLOBIN 13.5 g/dL (13.1-16.8); IMMATURE GRAN ABSOLUTE AUTO 0.02 10^3/uL (0.00-0.04); IMMATURE GRAN PERCENT AUTO 0.2 % (0.0-0.4); LYMPHOCYTES ABSOLUTE AUTO 1.57 K/uL (0.50-3.50); LYMPHOCYTES PERCENT AUTO 17.4 % (10.0-50.0); MEAN CORPUSCULAR HEMOGLOBIN 35.6 pg (28.2-33.3); MEAN CORPUSCULAR HGB CONC 33.7 g/dL (31.7-36.0); MEAN CORPUSCULAR VOLUME 105.8 fL (84.0-98.0); MONOCYTES ABSOLUTE AUTO 0.68 K/uL (0.00-1.00); MONOCYTES PERCENT AUTO 7.5 % (2.0-14.0); NEUTROPHILS ABSOLUTE AUTO 6.61 K/uL (1.40-7.00); NEUTROPHILS PERCENT AUTO 73.2 % (45.0-80.0); PLATELET COUNT,PLT 149 K/uL (150-350); RED BLOOD CELL COUNT 3.79 M/uL (4.33-5.41); RED CELL DISTRIBUTION WIDTH 13.7 % (11.2-14.1)
[2024-12-19 00:33] LABS: ANION GAP 6.2 meq/L (7-15); BLOOD UREA NITROGEN,BUN 19 mg/dL (7-18); CALCIUM 8.9 mg/dL (8.5-10.1); CARBON DIOXIDE,CO2 30.8 mmol/L (21.0-32.0); CHLORIDE,CL 104 mmol/L (98-107); CREATININE 1.01 mg/dL (0.51-1.17); ESTIMATED GFR 74 mL/min (>=60); GLUCOSE RANDOM 105 mg/dL (70-99); POTASSIUM,K 4.2 mmol/L (3.5-5.1); PRO B-TYPE NATRIUR PEPT,BNPPRO 744 pg/mL (0-125); SODIUM,NA 141 mmol/L (136-145)
== END 2024-12-19 03:29 | disposition home or self-care (01) ==
LOC: LL.ED 23:20
DX: R07.9 Chest pain, unspecified (principal); I25.2 Old myocardial infarction; I10 Essential (primary) hypertension; E78.00 Pure hypercholesterolemia, unspecified; Z95.5 Presence of coronary angioplasty implant and graft; Z88.8 Allergy status to other drugs, medicaments and biological substances; Z79.82 Long term (current) use of aspirin; Z79.899 Other long term (current) drug therapy
CPT/HCPCS: 36415; 71045; 80048; 83880; 84484; 85025; 85610; 85730; 93005; 93010; 99284; 99285; A9270-GY